=== PATIENT | female | born 1990 | race Caucasian/White ===

== ENCOUNTER 2017-06-12 12:36 | Emergency (ER) | payer BC, OTHER ==
[~2017-06-12] VITALS: Ht 157.5 cm; Wt 57.0 kg
[2017-06-12 12:39] VITALS: Ht 157.5 cm; Wt 57.0 kg
--- NOTE | 2017-06-12 13:46 | RADRPT ---
PROCEDURE: Left breast ultrasound. CLINICAL INDICATION: Left breast lump TECHNIQUE: Left whole breast, 4 quadrant and retroareolar, and axillary sonography was performed. COMPARISON: None FINDINGS: 6 o'clock palpable lump: 2 adjacent ovoid hypoechoic masses measuring 1.8 and 0.9 cm. The mass is a vascular, parallel hypoechoic. Probably benign, likely fibroadenoma Is periareolar left breast: 1.3 cm ovoid parallel avascular hypoechoic mass. Probably benign, like ly fibroadenoma IMPRESSION: 1. There are 3 probable benign masses in the left breast. Findings are likely outbound call center representative of mul tiple fibroadenomas. Recommend short interval sonographic follow-up 6 months to ensure benignity BI-RADS 3: PROBABLY BENIGN. RPTAT: EE .Fahad Lew MD, Date Time Electronically viewed and signed by .Fahad Lew MD, on 06/12/2017 13:46 .M/
[2017-06-12] MEDS ORDERED: ACET500C5 PO (14:04)
--- NOTE | 2017-06-12 14:14 | ERD ---
ER Documentation Chief Complaint Date/Time DATE: 06/12/17 TIME: 14:07 Chief Complaint left breast pain x 1 mos HPI 27-year-old female patient with no significant past medical history presents to the ED complaining of left breast pain that started intermittently since 1 month ago. Describes the pain as sharp and rates it a 5 out of 10. States that she feels like the bump at the inferior portion of her left breast is getting bigger. States that she went to go see her [facility]LLER 3 months ago and the [facility]ER said that it was benign. Denies any purulent discharge, warm to touch, fever, chills, chest pain, shortness of breath, wheezing. Denies breast- feeding. States that her last menses was 1 week ago. ROS All systems reviewed and are negative except as per history of present illness. Medications Home Meds Active Scripts Acetaminophen* (Tylophen*) 500 Mg Capsule, 1 CAP PO Q6H Y for PAIN AND OR ELEVATED TEMP, #20 CAP Prov:NIRAJ CORNEJO PA-C 06/12/17 Allergies Allergies: Coded Allergies: No Known Allergy (Unverified , 06/12/17) PMhx/Soc Medical and Surgical Hx: pt denies Medical Hx, pt denies Surgical Hx Hx Alcohol Use: No Hx Substance Use: Yes (marijuana) Hx Tobacco Use: No Smoking Status: Never smoker Physical Exam Vitals Vital Signs Date Time Temp Pulse Resp B/P Pulse Ox O2 Delivery O2 Flow Rate FiO2 06/12/17 12:39 98.1 94 18 122/66 99 Physical Exam Const: Lax-kxe-ustzyufcs, well-nourished. In no acute distress. Head: Atraumatic, normocephalic Eyes: Normal Conjunctiva without injection. No purulent discharge. PERRL. EOMI ENT: Normal external ear. Ear canal without erythema. Tympanic membrane pearly goldstein without effusion or bulging. Nasal canal clear with normal turbinates. Moist oropharynx without tonsillar exudates. Non-erythematous pharynx. Uvula midline. No drooling. No trismus. Neck: Full range of motion. No meningismus. No cervical lymphadenopathy. Resp: Clear to auscultation bilaterally. No wheezing, rhonchi, rales, or crackles. No accessory muscle use. No retractions. Cardio: Regular rate and rhythm. No murmurs, rubs or gallops. Breast: Tenderness palpation of the left inferior breast. No warmth to touch. No surrounding erythema, edema, irregular discharge. Multiple 1 cm palpable mass noted at the inferior portion of patient's left breast. No fluctuance, induration, lymphatic streaking, bleeding, spontaneous drainage noted. Abd: Soft, non tender, non distended. Normal bowel sounds. No palpable masses. No rebound tenderness. No guarding. Skin: No petechiae or rashes Back: No midline tenderness. No CVA tenderness. Ext: No cyanosis, or edema. Neur: Awake and alert. Psych: Normal Mood and Affect Procedures/MDM 27-year-old female patient with no significant past medical history presents to the ED complaining of left breast pain that started intermittently for 1 month. Patient is afebrile and nontoxic-appearing. Patient has normal vital signs. A left breast ultrasound was ordered to further evaluate patient. PROCEDURE: Left breast ultrasound. CLINICAL INDICATION: Left breast lump TECHNIQUE: Left whole breast, 4 quadrant and retroareolar, and axillary sonography was performed. COMPARISON: None FINDINGS: 6 o'clock palpable lump: 2 adjacent ovoid hypoechoic masses measuring 1.8 and 0.9 cm. The mass is avascular, parallel hypoechoic. Probably benign, likely fibroadenoma Is periareolar left breast: 1.3 cm ovoid parallel avascular hypoechoic mass. Probably benign, likely fibroadenoma IMPRESSION: 1. There are 3 probable benign masses in the left breast. Findings are likely clearance representative of multiple fibroadenomas. Recommend short interval sonographic follow-up 6 months to ensure benignity BI-RADS 3: PROBABLY BENIGN. Patient was noted to have fibroadenomas on her breast ultrasound however was strictly instructed to follow-up with her [facility] for further evaluation and treatment.. Differential diagnosis considered include but is not limited to mastitis, cyst, fibrocystic changes, galactocele, fat necrosis, malignancy. Low suspicion for deep space infection, sepsis, cellulitis, or other emergent conditions. Discharge medications: Tylenol Follow up with primary care physician in 1-2 days. Instructed patient to return to the ED sooner for any worsening symptoms. Patient's questions were answered. Patient understood and agreed with discharge plan. Patient discharged stable. Departure Diagnosis: Primary Impression: Breast pain Condition: Stable Patient Instructions: Breast Self-Exam (BSE), Breast Mass, Uncertain Cause Referrals: [facility] YOU HAVE RECEIVED A MEDICAL SCREENING EXAM AND THE RESULTS INDICATE THAT YOU DO NOT HAVE A CONDITION THAT REQUIRES URGENT TREATMENT IN THE EMERGENCY DEPARTMENT. FURTHER EVALUATION AND TREATMENT OF YOUR CONDITION CAN WAIT UNTIL YOU ARE SEEN IN YOUR DOCTORS OFFICE WITHIN THE NEXT 1-2 DAYS. IT IS YOUR RESPONSIBILITY TO MAKE AN APPOINTMENT FOR FOLOW-UP CARE. IF YOU HAVE A PRIMARY DOCTOR --you should call your primary doctor and schedule an appointment IF YOU DO NOT HAVE A PRIMARY DOCTOR YOU CAN CALL OUR PHYSICIAN REFERRAL HOTLINE AT IF YOU CAN NOT AFFORD TO SEE A PHYSICIAN YOU CAN CHOSE FROM THE FOLLOWING [facility] [address]. [facility] [address] [facility] [facility] [address] [facility] [facility] [address] [facility] [facility] [address] [facility]. [facility]. [address] [facility]. [facility] YOU HAVE RECEIVED A MEDICAL SCREENING EXAM AND THE RESULTS INDICATE THAT YOU DO NOT HAVE A CONDITION THAT REQUIRES URGENT TREATMENT IN THE EMERGENCY DEPARTMENT. FURTHER EVALUATION AND TREATMENT OF YOUR CONDITION CAN WAIT UNTIL YOU ARE SEEN IN YOUR DOCTORS OFFICE WITHIN THE NEXT 1-2 DAYS. IT IS YOUR RESPONSIBILITY TO MAKE AN APPOINTMENT FOR FOLOW-UP CARE. IF YOU HAVE A PRIMARY DOCTOR --you should call your primary doctor and schedule and appointment IF YOU DO NOT HAVE A PRIMARY DOCTOR YOU CAN CALL OUR PHYSICIAN REFERRAL HOTLINE AT . IF YOU CAN NOT AFFORD TO SEE A PHYSICIAN YOU CAN CHOSE FROM THE FOLLOWING [facility]: [facility] [address] [place] [address] [facility] [address] [place] [address] [facility] [address] [place] [address] [employer] [address] [facility] [address] [place] [address] OFFICE FAX , [facility] [address] [place] [address] [address] HAYWOOD, [place] [address] [place] [address] DR QUIJANO, [facility] [address], [place] [address] [address] MORALES, [facility] [address] [facility], [place] [address] [facility] [address] [place] [address] [address] [facility] [address] - [address] BURNS, JAYLA [address] [facility]. [address], [place] [address] DR KIMBROUGH, [place] [address] [facility]. [address], [place] [address] DR OLIVIER, [facility] [address] [place], [place] [id number] [facility] Hours: 8:00 am - 5:00 pm Additional Instructions: Your ultrasound shows there are probable Fibroadenomas which are benign solid tumors containing fibrous tissue. FOLLOW UP WITH YOUR PRIMARY CARE PHYSICIAN TOMORROW for a referral to an [facility] for further evaluation and treatment. Return to this facility if you are not improving as expected - fever, infection , etc. NIRAJ CORNEJO PA-C Jun 12, 2017 14:14
[2017-06-12 14:15] VITALS: BP 118/62; PULSE 66; RESP 18; TEMP 98.1
== END 2017-06-12 14:15 | disposition home or self-care (01) ==
LOC: FTE 12:36
DX: N64.4 Mastodynia (principal)
CPT/HCPCS: 76642